=== PATIENT | male | born 1995 | race Hispanic/Latino ===

== ENCOUNTER 2022-05-09 17:29 | Emergency (ER) | payer OTHER, SELFPAY ==
[2022-05-09 17:53] VITALS: BP 120/79; PULSE 137; RESP 16; TEMP 36.6; O2SAT 98
--- NOTE | 2022-05-09 18:01 | ED.URI ---
HPI - URI/Sore Throat General Chief Complaint: Upper Respiratory Infection Stated Complaint: sore throat,swollen tonsils,fever Time Seen by Provider: 05/09/22 18:01 History of Present Illness HPI Narrative: 26-year-old male presenting for complaint of sore throat worsening over the past 3 days. He also reports tonsils are swollen with white plaque, and states he had high fever prior to arrival. He is taking Tylenol and Advil cold and Sinus for symptoms. He denies sick contacts. He denies shortness of breath, wheezing, nausea, vomiting or diarrhea. Review of Systems Review of Systems: Per HPI Exam Narrative: GENERAL: Ill-appearing, no acute distress. EYES: conjunctivae clear ENT: Mucous membranes moist. TMs pearly epperson with normal light reflex bilaterally; no tragal tenderness. Oropharynx erythematous Tonsils enlarged 3+ with exudate. Hot potato voice noted. No drooling, no hoarseness, no trismus, uvula midline. No tripod positioning or soft palate swelling. NECK: Supple. No lymphadenopathy CHEST: Clear to auscultation, breath sounds equal. No respiratory distress, speaks in full sentences. HEART: Regular rate and rhythm. No murmur heard. SKIN: Warm, dry, no rash. NEURO: Alert and oriented x3. Course Course Emergency Course: Patient is aware of diagnosis, understands and agrees to treatment plan. Anticipatory guidance given. Patient agrees to follow-up as directed and is aware of reasons to seek care at the emergency department. Portions of this record may have been created with voice recognition software Level of Care: Express Care Visit Vital Signs Vital signs: Vital Signs Temperature 97.8 F 05/09/22 17:53 Pulse Rate 137 H 05/09/22 17:53 Respiratory Rate 16 05/09/22 17:53 Blood Pressure 120/79 05/09/22 17:53 Pulse Oximetry 98 05/09/22 17:53 Temperature 97.8 F 05/09/22 17:53 Pulse Rate 137 H 05/09/22 17:53 Respiratory Rate 16 05/09/22 17:53 Blood Pressure 120/79 05/09/22 17:53 Pulse Oximetry 98 05/09/22 17:53 MDM - URI/Sore Throat MDM Narrative Medical decision making narrative: strep result reviewed with pt. Will treat based on PE. 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 Advise supportive treatments. Patient is appropriate for outpatient treatment and follow-up. Differential Diagnosis Differential diagnosis: Likely upper respiratory infection, viral infection and pharyngitis Lab Data Labs: Strep Screen Presumptive Negative *(Reference Range: Negative)* Discharge Plan Discharge Clinical Impression: Pharyngitis Patient Disposition: Home, Self-Care Condition: Stable Instructions: Antibiotic Form, Strep Throat (ED) Additional Instructions: - Take the antibiotic as directed. Fever and sore throat typically resolve within one to three days. Most patients can return to work after 12 to 24 hours of antibiotic therapy, provided you are fever free and otherwise well. -Eat and drink things that are easy to swallow, like soft foods, cool liquids, tea with honey, or popsicles . -Salt water gargles and/or may use topical anesthetic ( Chloraseptic spray) or lozenges to relieve dryness or throat pain -Alternate Tylenol and ibuprofen as needed for pain and fever as directed. 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 Throw away the toothbrush after 24hours of antibiotic. -Follow up with primary care provider in 2-3 days if condition is not improving -Go to the ER if you have trouble breathing, cannot drink enough fluids, have muffled voice or drooling, difficulty opening your mouth, or severe swelling. Prescriptions: New amoxicillin 500 mg tablet 1,000 mg PO DAILY 10 Days Qty: 20 0RF ibuprofen 800 mg tablet 800 mg PO TID PRN (Reason: pain) Qty: 15 0RF Follow-up/Referrals: UNKNOWN,DOCTOR [Primary Care Provider] - Time of D
== END 2022-05-09 18:20 | disposition home or self-care (01) ==
PROVIDERS: Emergency Provider Nurse Practitioner Family
DX: J02.9 Acute pharyngitis, unspecified (principal)
CPT/HCPCS: 87081; 87880; 99213; G0463